=== PATIENT | female | born 1990 | race Caucasian/White ===

== ENCOUNTER 2017-10-28 09:45 | Inpatient (IN) | payer BC, OTHER ==
[~2017-10-28] VITALS: Ht 152.4 cm; Wt 57.2 kg
[2017-10-28] MEDS ORDERED: KETOROLAC 30 MG/1 ML ONE ×2 (10:19→18:23)
[2017-10-28 10:21] LABS: BASOPHILS # (AUTO) 0.01 x10^3/uL (0-0.1); BASOPHILS % (AUTO) 0 % (0-1); EOSINOPHILS # (AUTO) 0.04 x10^3/uL (0-0.4); EOSINOPHILS % (AUTO) 0 % (1-7); LYMPHOCYTES # (AUTO) 1.92 x10^3/uL (1-3.4); LYMPHOCYTES % (AUTO) 16 % (22-44); MD NO; MEAN CORPUSCULAR HGB CONC 33.6 g/dL (32.4-35.8); MEAN CORPUSCULAR VOLUME 83.4 fL (80-100); MEAN PLATELET VOLUME 7.5 fL (7.4-10.4); MONOCYTES # (AUTO) 1.17 x10^3/uL (0.2-0.8); MONOCYTES % (AUTO) 10 % (2-9); NEUTROPHILS # (AUTO) 9.07 x10^3/uL (1.8-6.8); NEUTROPHILS % (AUTO) 74 % (42-75); PLATELET COUNT 363 x10^3/uL (130-400); RED BLOOD COUNT 4.44 x10^6/uL (3.82-5.3); RED CELL DISTRIBUTION WIDTH 14.9 % (9.6-15.2)
[2017-10-28 10:31] LABS: ALANINE AMINOTRANSFERASE 35 U/L (12-78); ALBUMIN 2.5 g/dL (3.4-5.0); ANION GAP 8 mmol/L (5-15); CALCIUM 8.9 mg/dL (8.5-10.1); CHLORIDE 108 mmol/L (98-107)
[2017-10-28 10:33] LABS: CREATININE 0.79 mg/dL (0.55-1.02)
[2017-10-28 10:34] LABS: ALKALINE PHOSPHATASE 146 U/L (45-117); BILIRUBIN,TOTAL 0.3 mg/dL (0.2-1.0); TOTAL PROTEIN 7.3 g/dL (6.4-8.2)
[2017-10-28 10:42] LABS: CULTURE INDICATED? YES; HCG UR SG 1.016 (1.003-1.030); MICROSCOPIC INDICATED
[2017-10-28] MEDS ORDERED: KETOROLAC 30 MG/1 ML IM ONE (12:30)
[2017-10-28] MEDS ORDERED: GENTAMICIN PER PHARMACY MC PRN ×2 (12:30→15:00)
[2017-10-28] MEDS ORDERED: SODIUM CHLORIDE FLUSH 10ML SYR IVF ONE (12:30)
[2017-10-28] MEDS ORDERED: OMNIPAQUE 350 MG/ML, 100ML BOTTLE ONE (12:56)
[2017-10-28] MEDS ORDERED: GENTAMICIN 300 MG in SODIUM CHLORIDE 0.9% 100 ML IV ONE (13:00)
[2017-10-28 14:32] VITALS: BP 132/80
[2017-10-28] MEDS ORDERED: ONDANSETRON ODT 4 MG PO PRN (15:00)
[2017-10-28] MEDS ORDERED: PHARMACOKINETIC MONITORING MC PRN (15:00)
[2017-10-28] MEDS: SODIUM CHLORIDE 0.9% 1,000 ML IV SCH (17:10)
[2017-10-28] MEDS: KETOROLAC 30 MG/1 ML IVPush SCH ×2 (18:25→23:57)
[2017-10-28 18:48] VITALS: BP 113/71
[2017-10-28] MEDS: ACETAMINOPHEN 325 MG TABLET PO PRN (19:12)
[2017-10-29 01:51] VITALS: BP 113/69
[2017-10-29 05:35] LABS: BASOPHILS # (AUTO) 0.02 x10^3/uL (0-0.1); BASOPHILS % (AUTO) 0 % (0-1); EOSINOPHILS % (AUTO) 1 % (1-7); LYMPHOCYTES # (AUTO) 2.54 x10^3/uL (1-3.4); LYMPHOCYTES % (AUTO) 30 % (22-44); MD NO; MEAN CORPUSCULAR HEMOGLOBIN 27.3 pg (27.0-34.8); MEAN CORPUSCULAR HGB CONC 32.8 g/dL (32.4-35.8); MEAN CORPUSCULAR VOLUME 83.3 fL (80-100); MEAN PLATELET VOLUME 7.5 fL (7.4-10.4); MONOCYTES # (AUTO) 1.29 x10^3/uL (0.2-0.8); MONOCYTES % (AUTO) 15 % (2-9); NEUTROPHILS # (AUTO) 4.54 x10^3/uL (1.8-6.8); NEUTROPHILS % (AUTO) 54 % (42-75); PLATELET COUNT 279 x10^3/uL (130-400); RED BLOOD COUNT 3.91 x10^6/uL (3.82-5.3); RED CELL DISTRIBUTION WIDTH 14.7 % (9.6-15.2)
[2017-10-29 05:40] LABS: ANION GAP 9 mmol/L (5-15); CALCIUM 8.3 mg/dL (8.5-10.1); CHLORIDE 109 mmol/L (98-107)
[2017-10-29 05:41] LABS: CREATININE 0.71 mg/dL (0.55-1.02)
[2017-10-29] MEDS: KETOROLAC 30 MG/1 ML IVPush SCH ×3 (06:00→19:34)
[2017-10-29 07:02] VITALS: BP 104/65
[2017-10-29] MEDS: SODIUM CHLORIDE 0.9% 1,000 ML IV SCH (09:04)
[2017-10-29] MEDS ORDERED: GENTAMICIN 300 MG in SODIUM CHLORIDE 0.9% 100 ML IV SCH (13:00)
[2017-10-29] MEDS: AMPICILLIN/SULBACTAM 1,500 MG in SODIUM CHLORIDE 0.9% 50 ML IV SCH ×2 (13:51→19:34)
[2017-10-29 14:47] VITALS: BP 114/75
[2017-10-29 19:00] VITALS: BP 133/83
[2017-10-30] MEDS: KETOROLAC 30 MG/1 ML IVPush SCH ×5 (01:28→15:55)
[2017-10-30] MEDS: AMPICILLIN/SULBACTAM 1,500 MG in SODIUM CHLORIDE 0.9% 50 ML IV SCH ×4 (01:28→19:51)
[2017-10-30] MEDS: SODIUM CHLORIDE 0.9% 1,000 ML IV SCH ×2 (01:28→19:52)
[2017-10-30 02:05] VITALS: BP 129/68
[2017-10-30 05:00] LABS: BASOPHILS # (AUTO) 0.03 x10^3/uL (0-0.1); BASOPHILS % (AUTO) 0 % (0-1); EOSINOPHILS # (AUTO) 0.09 x10^3/uL (0-0.4); EOSINOPHILS % (AUTO) 1 % (1-7); LYMPHOCYTES # (AUTO) 2.67 x10^3/uL (1-3.4); LYMPHOCYTES % (AUTO) 34 % (22-44); MD NO; MEAN CORPUSCULAR HEMOGLOBIN 27.7 pg (27.0-34.8); MEAN CORPUSCULAR HGB CONC 33.3 g/dL (32.4-35.8); MEAN CORPUSCULAR VOLUME 83.2 fL (80-100); MEAN PLATELET VOLUME 7.3 fL (7.4-10.4); MONOCYTES # (AUTO) 0.85 x10^3/uL (0.2-0.8); MONOCYTES % (AUTO) 11 % (2-9); NEUTROPHILS # (AUTO) 4.31 x10^3/uL (1.8-6.8); NEUTROPHILS % (AUTO) 54 % (42-75); PLATELET COUNT 327 x10^3/uL (130-400); RED BLOOD COUNT 4.01 x10^6/uL (3.82-5.3); RED CELL DISTRIBUTION WIDTH 14.5 % (9.6-15.2)
[2017-10-30 05:42] LABS: % IRON SATURATION 9 % (20-55); IRON LEVEL 22 mcg/dL (50-170); TOTAL IRON BINDING CAPACITY 257 mcg/dL (250-450)
[2017-10-30 05:46] LABS: FOLATE LEVEL > 20.0 ng/mL (3.1-17.5)
[2017-10-30] MEDS ORDERED: FERROUS SULFATE 325 MG TABLET PO SCH (07:00)
[2017-10-30 08:20] VITALS: BP 116/77
[2017-10-30 12:34] VITALS: BP 118/75
[2017-10-30 18:50] VITALS: BP 117/72
[2017-10-31] MEDS: KETOROLAC 30 MG/1 ML IVPush SCH ×3 (02:16→14:00)
[2017-10-31] MEDS: AMPICILLIN/SULBACTAM 1,500 MG in SODIUM CHLORIDE 0.9% 50 ML IV SCH ×2 (02:16→09:54)
[2017-10-31 03:30] VITALS: BP 108/66
[2017-10-31 06:43] VITALS: BP 128/77
[2017-10-31] MEDS: ACETAMINOPHEN 325 MG TABLET PO PRN (09:54)
[2017-10-31] MEDS ORDERED: LIDOCAINE-MPF 1%, 2ML ONE (13:39)
[2017-10-31] MEDS ORDERED: AMPICILLIN/SULBACTAM 3 GM in SODIUM CHLORIDE 0.9% 100 ML IV SCH (14:00)
[2017-10-31] MEDS ORDERED: ERTAPENEM 1 GM in SODIUM CHLORIDE 0.9% 50 ML IV ONE (14:57)
[2017-10-31] MEDS: SODIUM CHLORIDE 0.9% 1,000 ML IV SCH (15:00)
[2017-10-31] MEDS ORDERED: FERR-51 PO (16:08)
[2017-10-31] MEDS ORDERED: ERTA1VIA IV (16:08)
[2017-10-31] MEDS ORDERED: ACET325T14 PO (16:08)
== END 2017-10-31 18:03 | disposition home or self-care (01) | DRG 872 ==
LOC: ED 12:29 → EDIP 13:21 → 3NE 13:51
PROVIDERS: ADMIT Internal Medicine; ATTEND Internal Medicine
PROC: 02HV33Z Insertion of Infusion Device into Superior Vena Cava, Percutaneous Approach (ICD-10-PCS; principal; 2017-10-31)
PROC: B548ZZA Ultrasonography of Superior Vena Cava, Guidance (ICD-10-PCS; 2017-10-31)
DX: A41.9 Sepsis, unspecified organism (principal); N10 Acute pyelonephritis; B96.20 Unspecified Escherichia coli [E. coli] as the cause of diseases classified elsewhere; D50.9 Iron deficiency anemia, unspecified; Z88.1 Allergy status to other antibiotic agents; Z88.2 Allergy status to sulfonamides; Z91.048 Other nonmedicinal substance allergy status
CPT/HCPCS: 36415; 36569; 74021; 74177; 76770; 76937; 77001; 80048; 80053; 80170; 81001; 81025; 82274; 82607; 82746; 83540; 83550; 83605; 83690; 85025; 87040; 87086; 96372; 96374; J1335; J1885; J3490; Q0162; Q9967; C1751; J0295; J1580; J7030